=== PATIENT | female | born 1965 | race Caucasian/White ===

== ENCOUNTER 2017-04-08 14:13 | Emergency (ER) | payer BC ==
[~2017-04-08] VITALS: Ht 170.2 cm; Wt 94.8 kg
[2017-04-08] MEDS ORDERED: FLEXERIL10 MG PO (16:41)
[2017-04-08 16:48] VITALS: BP 111/75
== END 2017-04-08 16:49 | disposition home or self-care (01) ==
LOC: EME 14:13
DX: S86.812A Strain of other muscle(s) and tendon(s) at lower leg level, left leg, initial encounter (principal); X58.XXXA Exposure to other specified factors, initial encounter
CPT/HCPCS: 93971; 99281; 99283

== ENCOUNTER 2017-11-02 10:28 | Day surgery (SDC) | payer BC ==
[~2017-11-02] VITALS: Ht 170.2 cm; Wt 91.0 kg
[~2017-11-02 10:28] MED LIST: FLEXERIL10 MG PO
[2017-11-02] MEDS ORDERED: CELEXA40 MG PO (10:54)
[2017-11-02] MEDS ORDERED: COZAAR100 MG PO (10:54)
[2017-11-02] MEDS ORDERED: PROAIR HFA8.5 GM IH (10:55)
[2017-11-02] MEDS ORDERED: PROMETHAZINE HC25 M1 PO (10:56)
[2017-11-02] MEDS ORDERED: IMITREX50 MG PO (10:56)
[2017-11-02] MEDS ORDERED: HYOSCYAMINE0.125 MG PO (10:57)
[2017-11-02] MEDS ORDERED: PROMETHEGAN25 MG PR (10:57)
== END 2017-11-02 13:10 | disposition home or self-care (01) ==
LOC: CATH 10:28
DX: I87.8 Other specified disorders of veins (principal); C50.911 Malignant neoplasm of unspecified site of right female breast; I10 Essential (primary) hypertension; J45.909 Unspecified asthma, uncomplicated; K58.9 Irritable bowel syndrome, unspecified; Z82.0 Family history of epilepsy and other diseases of the nervous system; Z82.49 Family history of ischemic heart disease and other diseases of the circulatory system
CPT/HCPCS: C1751; C1894; J0690; J1644; J2250; J2405; J3010; S0020

== ENCOUNTER → 2017-12-25 | Outpatient (CLI) | payer BC ==
[~2017-12-25] MED LIST changes: +CELEXA40 MG PO; +COZAAR100 MG PO; +HYOSCYAMINE0.125 MG PO; +IMITREX50 MG PO; +PROAIR HFA8.5 GM IH; +PROMETHAZINE HC25 M1 PO; +PROMETHEGAN25 MG PR
== END | disposition home or self-care (01) ==
LOC: AMB 12:05
PROC: 0JQ60ZZ Repair Chest Subcutaneous Tissue and Fascia, Open Approach (ICD-10-PCS; principal; 2017-12-25)
DX: T81.31XA Disruption of external operation (surgical) wound, not elsewhere classified, initial encounter (principal); I87.8 Other specified disorders of veins; Z92.21 Personal history of antineoplastic chemotherapy; Y84.8 Other medical procedures as the cause of abnormal reaction of the patient, or of later complication, without mention of misadventure at the time of the procedure

== ENCOUNTER → 2018-03-13 | Outpatient (CLI) | payer BC ==
[~2018-03-13] MED LIST changes: +FOLGARD1 TABLET PO; +METAFOLBIC TAB1 EACH PO; +POTASSIUM CHLO20 ME2 PO; +TYLENOL EXTRA500 MG PO
== END | disposition home or self-care (01) ==
LOC: CDC 08:28
DX: Z01.810 Encounter for preprocedural cardiovascular examination (principal); C50.211 Malignant neoplasm of upper-inner quadrant of right female breast; I45.4 Nonspecific intraventricular block
CPT/HCPCS: 93000

== ENCOUNTER 2018-03-18 05:39 | Day surgery (SDC) | payer BC ==
[~2018-03-18] VITALS: Ht 170.2 cm; Wt 84.8 kg
[2018-03-18 06:52] VITALS: BP 109/55
[2018-03-18] MEDS ORDERED: HYDROCODON-ACE1 EAC7 PO (11:57)
[2018-03-18 13:10] VITALS: BP 137/78
[2018-03-18 14:45] VITALS: BP 108/61
== END 2018-03-18 15:13 | disposition home or self-care (01) ==
LOC: NUC 05:39 → SDC 05:39
PROC: 07B50ZX Excision of Right Axillary Lymphatic, Open Approach, Diagnostic (ICD-10-PCS; principal; 2018-03-18)
PROC: 0HBT0ZZ Excision of Right Breast, Open Approach (ICD-10-PCS; principal; 2018-03-18)
DX: C50.211 Malignant neoplasm of upper-inner quadrant of right female breast (principal); Z17.1 Estrogen receptor negative status [ER-]; I10 Essential (primary) hypertension; J45.909 Unspecified asthma, uncomplicated; K21.9 Gastro-esophageal reflux disease without esophagitis; F41.9 Anxiety disorder, unspecified; Z80.3 Family history of malignant neoplasm of breast; Z80.0 Family history of malignant neoplasm of digestive organs
CPT/HCPCS: 78195; 78999; 88305; 88307; 88331; 88332; 88341 TC; 88342 TC; A9541; J0690; J1100; J1170; J2405; J3010; Q0175; S0020